=== PATIENT | female | born 2000 ===

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

== ENCOUNTER → 2019-11-09 | Outpatient (CLI) | payer OTHER ==
[~2019-11-09] MED LIST: SYEDA 3 MG-0.031 TAB
== END ==
LOC: COL.LAB 08:25
DX: Z01.812 Encounter for preprocedural laboratory examination (principal)